=== PATIENT | male | born 1960 | race Caucasian/White ===

== ENCOUNTER 2024-09-24 12:48 | Emergency (ER) | payer SELFPAY ==
[2024-09-24 12:52] VITALS: BP 178/91
[2024-09-24 13:11] LABS: % Basophils 0.2 % (0-2); % Eosinophils 0.7 % (0-6); % Immature Granulocytes 0.3 % (0-0.5); % Lymphocytes 18.5 % (20.5-51.1); % Monocytes 7.2 % (1.7-9.3); % Neutrophils 73.1 % (42.2-75.2); Absolute Eosinophils 0.1 10^3/uL (0-0.7); Absolute Lymphocytes 1.8 10^3/uL (1.2-3.4); Absolute Monocytes 0.7 10^3/uL (0.1-0.6); Hematocrit 42.2 % (39.0-52.0); Hemoglobin 14.8 g/dL (13.0-18.0); Mean Corp Hgb Conc. 35.1 g/dL (33.0-37.0); Mean Corpuscular Hgb 29.8 pg (27.0-31.0); Mean Corpuscular Volume 84.9 fL (80.0-94.0); Mean Platelet Volume 10.5 fL (7.4-10.4); Nucleated Red Blood Cells % 0 % (-); Platelet Count 218 10^3/uL (130-400); Red Blood Cell Count 4.97 10^6/uL (4.70-6.10); Red Cell Dist. Width 12.2 % (11.5-14.5); White Blood Cell Count 9.6 10^3/uL (4.8-10.8)
[2024-09-24 13:12] LABS: Urine Albumin 1+ (Neg - Trace); Urine Bilirubin Negative (Negative); Urine Character Clear (Clear); Urine Color Yellow; Urine Glucose Negative (Negative); Urine Ketone Negative (Negative); Urine Leukocyte 1+ (Negative); Urine Nitrite Negative (Negative); Urine Occult Blood Negative (Negative); Urine Specific Gravity 1.025 (<1.030); Urine Urobilinogen 1+ (Neg - 1+)
[2024-09-24 13:23] LABS: ALT (SGPT) 32 U/L (0-50); AST (SGOT) 20 U/L (17-59); Albumin 4.7 g/dl (3.5-5.0); Alkaline Phosphatase 95 U/L (38-126); Blood Urea Nitrogen 16 mg/dl (9-20); Calcium 9.3 mg/dl (8.4-10.2); Carbon Dioxide 28 mmol/L (22-30); Chloride 105 mmol/L (98-107); Glucose 110 mg/dl (70-99); Lipase 74 U/L (23-300); Potassium 4.4 mmol/L (3.5-5.1); Sodium 141 mmol/L (135-145); Total Bilirubin 2.4 mg/dl (0.2-1.3); Total Protein 7.2 g/dl (6.3-8.2); eGFR > 60.00
[2024-09-24 13:25] LABS: Urine Bacteria Few (Negative); Urine Mucus Few; Urine Red Blood Cell 0-2 /HPF (0-2); Urine Squamous Cell 0-2 /LPF (Few); Urine White Cell 0-2 /HPF (0-5)
[2024-09-24 14:11] VITALS: BMI 35.3
--- NOTE | 2024-09-24 14:20 | ED.GENMED ---
History of Present Illness
General
Chief Complaint: Abdominal Pain
Source: patient
Exam Limitations: none
Time Seen by Provider: 09/24/24 14:10
Nursing documentation reviewed up to this point in time: agreed with
History of Present Illness
History of Present Illness:
63-year-old male with history hypertension, hyperlipidemia, CAD presenting to the emergency department with abdominal pain X 6 days. Patient reports a somewhat sharp pain in his left lower quadrant over the past 6 days which has been relatively
constant although waxes and wanes in severity. Patient has felt very bloated over the past week although denies any vomiting. He feels that his bowel movements have not been �normal� and is worried he may have a blockage.
Patient states he is hungry although was afraid to eat as it seems to make the pain worse.
Patient denies any fevers or dysuria. No radiation of pain to flank or groin. He denies any testicular pain. Patient has had no chest pain or shortness of breath.
He denies any history of similar symptoms.
Review of Systems
Review of Systems
Allergies reviewed?: Yes
All Other Systems: ROS reviewed and negative except as documented in HPI and ROS
Phy Exam
Physical Exam
Physical Exam:
Vitals: Hypertensive, otherwise stable vitals signs. Afebrile
General: Patient is well appearing, no acute distress
Skin: Warm and dry, no rashes or lesions
Head: Normocephalic, atraumatic
Eyes: Sclera nonicteric.
Throat: Protecting airway
Neck: Normal ROM, no cervical spine tenderness, no meningismus
Cardiac: Regular rate and rhythm, no murmurs.
Pulm: Normal respiratory effort, no wheezes, rales, rhonchi heard on exam
.
Abdomen: Abdomen soft. Mild - moderate tenderness to palpation in LLQ. No rebound tenderness or guarding. No palpable masses.
Extremities: No evidence of cyanosis or edema. DP pulses palpable bilaterally.
Neuro: AAOx3. grossly intact.
Psychiatric: Normal affect.
Course
Orders/Labs/Results
Orders:
Orders
09/24/24 12:51
Electrocardiogram (*1) Urgent
Reason for Study: Abdominal Pain
EKG- Treatment ONCE
09/24/24 12:57
Complete Blood Count/With Diff Urgent
Comprehensive Metabolic Panel Urgent
Lipase Urgent
Urinalysis Reflex To Culture Urgent
Date Specimen was Collected: 09/24/24
Time Specimen was Collected: 12:51
Urine Microscopic Reflex Cult Urgent
Urine Culture Urgent
SCOTT Source: U
Specimen Description:
Date Specimen was Collected: 09/24/24
Time Specimen was Collected: 12:51
09/24/24 14:20
CT Abd/pelvis W Iv Cont Urgent
Comment:
Reason For Exam: LLQ pain
0.9% Sodium Chloride 1000 ml [Nss] 1,000 ml IV BOLUS
Abnormal Lab Results
09/24/24
12:57
MPV 10.5 H fL
(7.4-10.4)
Absolute Neuts (auto) 7.0 H 10^3/uL
(1.4-6.5)
Absolute Monos (auto) 0.7 H 10^3/uL
(0.1-0.6)
Lymphocytes % 18.5 L %
(20.5-51.1)
Glucose 110 H mg/dl
(70-99)
Total Bilirubin 2.4 H mg/dl
(0.2-1.3)
Leukocyte Esterase Rfl 1+ A
(Negative)
Urine Bacteria (Reflex) Few A
(Negative)
Urine Albumin (Reflex) 1+ A
(Neg - Trace)
09/24/24 12:57
09/24/24 12:57
Vital Signs
Initial and Last Documented VS:
Initial Vital Signs
Temp Pulse Resp BP Pulse Ox
98.5 F 78 16 178/91 96
09/24/24 12:52 09/24/24 12:52 09/24/24 12:52 09/24/24 12:52 09/24/24 12:52
Last Documented Vital Signs
Temp Pulse Resp BP Pulse Ox
98.5 F 77 16 133/88 96
09/24/24 12:52 09/24/24 17:14 09/24/24 12:52 09/24/24 17:10 09/24/24 17:11
MDM/Problems Addressed
Differential Diagnosis Includes:
Not limited to: viral colitis, diverticulitis, pyelonephritis, ureterolithiasis, muscular strain, incarcerated hernia, etc
MDM/Problems Addressed:
63-year-old male with six days of left lower abdominal pain not associated with fever, vomiting or urinary symptoms. No clear changes in bowel habits. Vitals and physical exam as above.
Basic labs were sent in triage without any clinically significant abnormalities. There is no leukocytosis.
Will obtain CT scan abdomen/pelvis for further evaluation.
Patient declined analgesia at this time
Update: CT scan shows findings of acute epiploic appendicitis in left lower quadrant � consistent w/ area of patient symptoms. Patient remains well and comfortable appearing. Admission not indicated. Stable for discharge home. Advised supportive
care, Tylenol/NSAIDs for pain. Advised to follow with primary care. Patient given a copy of CT scan report. Patient comfortable with plan.
Chronic conditions affecting care:
HTN
Acute Exacerbation and/or Progression of Chronic Illness:
Acutely hypertensive
*Radiology
Radiology exam reviewed: radiology read reviewed
*EKG
Interpreted by ED Provider?: Yes
EKG Intrepretation Date: 09/24/24
Interpretation: abnormal
Comparison EKG: changes noted
Heart Rate: 68
Rate: normal
Rhythm: sinus
[place]: normal axis
Interval: first degree heart block
QRS Pattern: normal QRS
Ischemia: no ischemia
*Gas Meter Reader Interpretation
Rate: Gas Meter Reader- N/A
*Critical Care Note
Total Time (30-74mins, 75-104mins- exclusive of procedures): Not Applicable
ED Attending Note
-
Portions of this chart may have been created with voice recognition software.� Occasional wrong word or��sound alike� substitutions may have occurred due to the inherent limitations of voice recognition software.
Discharge Plan
Departure
Patient Disposition: Home (Routine Discharge)
Date of Disposition: 09/24/24
Time of Disposition: 17:01
Patient with high blood pressure during this ER visit?: Yes
Condition: Good
Covid-19: Not Applicable
Discharge Problem:
Epiploic appendagitis
Instructions: BLOOD PRESSURE
Prescriptions:
No Action
atorvastatin 80 mg Tablet
80 mg PO DAILY
aspirin 81 mg Tablet
81 mg PO DAILY
nifedipine 60 mg Tablet Extended Release
60 mg PO DAILY
ramipril 10 mg Capsule
10 mg PO DAILY
Metoprolol Xr
1 tab PO DAILY
Patient Comments:
? dose
Referrals:
Polo Huber MD [Family Provider] - Follow up in 5-7 days
Activity Restrictions/Additional Instructions:
RETURN TO THE EMERGENCY DEPARTMENT WITH ANY FEVER, CHILL, PERSISTENT/WORSENING ABDOMINAL PAIN, INABILITY TO TOLERATE FOOD/LIQUID BY MOUTH, SIGNS OF SEVERE DEHYDRATION, OR ANY OTHER CONCERNS
- As discussed�your CT scan showed epiploic appendagitis in your left lower abdomen. This should resolve with supportive care at home including Tylenol/Motrin for pain. It is important stay well-hydrated.
- Your bilirubin was elevated while in the emergency department. Please have this rechecked with your primary care to ensure stable or trending down. Otherwise your lab work showed no acute abnormalities.
- I would recommend a bland diet for the next 2 days and slowly advance as tolerated.
- Follow-up with primary care for further evaluation/management and to ensure that symptoms are improving
Monitor your symptoms closely and return to the emergency department with any acute worsening/new symptoms or any other concerns
Interventions
Interventions:
*General Assessment Last Done: 09/24/24 14:11
*Neglect/Abuse Screening Last Done: 09/24/24 12:52
*ED- Fall Risk Assessment Last Done: 09/24/24 12:52
*ED COVID-19 Vaccine History Last Done: 09/24/24 14:11
*Nursing Disposition Last Done: 09/24/24 17:14
GK-Attkxi-Tsihpjhyzn Assessment Last Done: 09/24/24 14:16
Discharge Date and Time
Discharge Date/Time: 09/24/24 17:15
Print Language: TRINIDADIAN
[2024-09-24] MEDS: NSS 1000 IV (14:25)
[2024-09-24 14:28] VITALS: BP 150/80
[2024-09-24 15:00] VITALS: BP 170/92
[2024-09-24 17:10] VITALS: BP 133/88
== END 2024-09-24 17:15 | disposition home or self-care (01) ==
LOC: EMR 12:48
PROVIDERS: Student in an Organized Health Care Education/Training Program; EMERGENCY PHYSICIAN Emergency Medicine; FAMILY PHYSICIAN Family Medicine
DX: R10.32 Left lower quadrant pain (principal); R14.0 Abdominal distension (gaseous); K63.89 Other specified diseases of intestine; I44.0 Atrioventricular block, first degree; I10 Essential (primary) hypertension; E78.5 Hyperlipidemia, unspecified; I25.10 Atherosclerotic heart disease of native coronary artery without angina pectoris; Z79.82 Long term (current) use of aspirin; Z95.5 Presence of coronary angioplasty implant and graft
CPT/HCPCS: 96360; 74177; 80053; 81003; 81015; 83690; 85025; 87086; 93005; 99284; Q9967